=== PATIENT | female | born 1975 | race Caucasian/White ===

== ENCOUNTER 2016-07-12 18:29 | Emergency (ER) | payer BC ==
[2016-07-12 19:43] LABS: Hematocrit 39 % (35-47); Hemoglobin 13.3 g/dl (12.0-16.0); Mean Corpuscular HGB Conc 34 g/dl (31-36); Mean Corpuscular Hemoglobin 30 pg (27-31); Mean Corpuscular Volume 88 fL (80-97); Mean Platelet Volume 9 um3 (7.4-10.4); Red Blood Count 4.46 10^6/ul (4.0-5.4); Red Cell Distribution Width 13 % (10.5-15)
--- NOTE | 2016-07-12 19:49 | RAD ---
INDICATION: 2 days shortness of breath with exertion. RIGHT greater than LEFT chest pain secondary to coughing. Fever. Remote partial RIGHT pneumonectomy. COMPARISON: August 28, 2015 CT. TECHNIQUE: Dual energy PA and routine lateral views of the chest were obtained. REPORT: Mildly elevated lung volumes. Stable line noted at the RIGHT upper lung zone corresponding with surgical history of partial pneumonectomy. Stable predominant linear scarring in the RIGHT mid to upper lung zone . Associated mild relative RIGHT hemithorax volume loss and minimal rightward mediastinal shift. No alveolar consolidation concerning for pneumonia. No suspicious focal pulmonary lesion, pleural effusion, or pneumothorax. Negative for cardiomegaly. Unremarkable central pulmonary vasculature and mediastinal contours. IMPRESSION: Stigmata of chronic obstructive pulmonary disease. No superimposed pneumonia evident.
[2016-07-12 20:01] LABS: ALT 15 U/L (7-52); AST 21 U/L (13-39); Albumin 4.3 g/dL (3.2-5.2); Alkaline Phosphatase 37 U/L (34-104); Anion Gap 6 mmol/L (2-11); BUN/Creatinine Ratio 15.5 (8-20); Blood Urea Nitrogen 9 mg/dL (6-24); C Reactive Protein < 1.00 mg/L (< 5.00); CO2 Carbon Dioxide 27 mmol/L (22-32); Calcium 9.4 mg/dL (8.6-10.3); Chloride 102 mmol/L (101-111); EGFR African American 146.6 (>60); Globulin 3.6 g/dL (2-4); Glucose 87 mg/dL (70-100); Potassium 3.4 mmol/L (3.5-5.0); Sodium 135 mmol/L (133-145); Total Protein 7.9 g/dL (6.4-8.9)
[2016-07-12] MEDS ORDERED: methylPREDNISolone 125 MG* 2 ML VIAL IV ONE (20:05)
[2016-07-12] MEDS ORDERED: Albuterol/Ipratropium NEB.SOL* Albuterol 2.5 MG/Ipratropium 0.5 MG 3 ML INH ONE (20:05)
[2016-07-12] MEDS ORDERED: Potassium Chlor TAB* 20 MEQ TAB.ER PO ONE (20:23)
[2016-07-12 22:15] VITALS: BP 110/72
--- NOTE | 2016-07-12 22:21 | ED ---
Chris Morfin Billy, scribed for Ryan Sanabria MD on 07/12/16 at 1900 . Shortness of Breath - HPI Summary HPI Summary: Patient is a 40 year-old female coming to [facility] presenting with constant SOB since yesterday. She states that her symptoms are worse with exertion. She also reports a fever, which she measured at 100.2F this morning. She also reports lower rib pain but denies any chest pain. She has had a cough for the last month. She has been using nebulizers at home with some improvement. - History of Current Complaint Chief Complaint: EDShortnessOfBreath Time Seen by Provider: 07/12/16 18:53 Hx Obtained From: Patient Onset/Duration: Gradual Onset, Lasting Days Timing: Constant Current Severity: Moderate Dyspnea At: Rest Aggrevating Factors: Movement Alleviating Factors: Bronchodilators Associated Signs & Symptoms: Cough (Nonproductive), Fever - Allergy/Home Medications Allergies/Adverse Reactions: Allergies Allergy/AdvReac Type Severity Reaction Status Date / Time Codeine Allergy Intermediate Swelling Verified 09/26/15 17:40 Vancomycin Allergy Flushing Verified 07/12/16 18:39 PMH/Surg Hx/FS Hx/Imm Hx Endocrine/Hematology History: Denies: Hx Diabetes Cardiovascular History: Denies: Hx Myocardial Infarction Respiratory History: Reports: Other Respiratory Problems/Disorders - cryptococcus Infectious Disease History: No Infectious Disease History: Denies: Traveled Outside the [place] in Last 30 Days - Family History Known Family History: Negative: Cardiac Disease, Hypertension, Diabetes - Social History Alcohol Use: Occasionally Substance Use Type: Reports: None Smoking Status (MU): Never Smoked Tobacco Review of Systems Positive: Fever Negative: Chest Pain Positive: Shortness Of Breath, Cough All Other Systems Reviewed And Are Negative: Yes Physical Exam - Summary Physical Exam Summary: VITAL SIGNS: Reviewed. GENERAL: Patient is a thin female who is lying comfortable in the stretcher. Patient is not in any acute respiratory distress. HEAD AND FACE: No signs of trauma. No ecchymosis, hematomas or skull depressions. No sinus tenderness. EYES: PERRLA, EOMI x 2, No injected conjunctiva, no nystagmus. EARS: Hearing grossly intact. Ear canals and tympanic membranes are within normal limits. MOUTH: Oropharynx within normal limits. NECK: Supple, trachea is midline, no adenopathy, no JVD, no carotid bruit, no c- spine tenderness, neck with full ROM. CHEST: Symmetric, no tenderness at palpation LUNGS: Clear to auscultation bilaterally. No wheezing or crackles. CVS: Regular rate and rhythm, S1 and S2 present, no murmurs or gallops appreciated. ABDOMEN: Soft, non-tender. No signs of distention. No rebound no guarding, and no masses palpated. Bowel sounds are normal. EXTREMITIES: FROM in all major joints, no edema, no cyanosis or clubbing. NEURO: Alert and oriented x 3. No acute neurological deficits. Speech is normal and follows commands. SKIN: Dry and warm Triage Information Reviewed: Yes Vital Signs On Initial Exam: Initial Vitals Temp Pulse Resp BP Pulse Ox 98.4 F 79 24 112/60 100 07/12/16 18:33 07/12/16 18:33 07/12/16 18:33 07/12/16 18:33 07/12/16 18:33 Vital Signs Reviewed: Yes Diagnostics - Vital Signs Vital Signs Temp Pulse Resp BP Pulse Ox 07/12/16 18:33 98.4 F 79 24 112/60 100 - Laboratory Result Diagrams: 07/12/16 18:45 07/12/16 18:45 Lab Statement: Any lab studies that have been ordered have been reviewed, and results considered in the medical decision making process. - Radiology CXR Radiology Interpretation Completed By: Radiologist - Stigmata of chronic obstructive pulmonary disease. No superimposed pneumonia evident. - EKG 1849 EKG Interpretation: NSR 67 bpm, no ST elevations Re-Evaluation - Re-Evaluation First Eval Re-Evaluation Time: 21:08 Change: Improved Course/Dx - Course Assessment/Plan: Patient is a 40 year-old female coming to [facility] presenting with constant SOB since yesterday. She states that her symptoms are worse with exertion. She also reports a fever, which she measured at 100.2F this morning. She also reports lower rib pain but denies any chest pain. She has had a cough for the last month. She has been using nebulizers at home with some improvement. Test results WNL except for potassium of 3.4. She was given Potassium Chloride. I did a D-Dimer which is negative. CXR shows COPD. I did offer the patient duonebs, which she declined, but she did take solu-medrol. At this time, she reports that she feels better, therefore she will be discharged [place] to follow up with PCP. She is hemodynamically stable, A&Ox3. I discussed all the findings and test results with the patient. Patient was instructed to return to the emergency room immediately if any of the symptoms return or worsens. Patient understand and agree. Plan of care was discussed with the patient and understands and agrees. All questions were answered at patient satisfaction. There were no further complaints or concerns. Lung exam before discharge: CTA B/L. Good air exchange. No wheezing or crackles heard. CVS: S1 and S2 present. No murmurs appreciated. Patient is alert and oriented x 3. Patient is hemodynamically stable. Patient will be discharged home with follow up hospital laboratory technician in the next 2-3 days - Diagnoses Differential Diagnosis/HQI/PQRI: Positive: Asthma, CHF, Pneumothorax, Pulmonary Embolism Provider Diagnoses: Dyspnea Discharge - Discharge Plan Condition: Stable Disposition: HOME Patient Education Materials: COPD (Chronic Obstructive Pulmonary Disease) (ED) , Dyspnea (ED) Referrals: Deidre Oleary MD [Primary Care Provider] - The documentation as recorded by the Chris doshi Billy accurately reflects the service I personally performed and the decisions made by me, Ryan Sanabria MD.
== END 2016-07-12 22:14 | disposition home or self-care (01) ==
LOC: ED 18:29
DX: R06.00 Dyspnea, unspecified (principal); J44.9 Chronic obstructive pulmonary disease, unspecified; R07.81 Pleurodynia; Z88.5 Allergy status to narcotic agent
CPT/HCPCS: 36415; 71020; 80053; 83605; 83880; 84484; 84702; 85025; 85379; 86140; 87040; 93005; 96365; 96374; 99282; A9270-GY; J2930